=== PATIENT | female | born 1980 ===

== ENCOUNTER 2018-01-28 13:49 | Emergency (ER) | payer OTHER ==
[~2018-01-28] VITALS: Ht 162.6 cm; Wt 84.4 kg
[~2018-01-28 13:49] MED LIST: AMOXICILLIN875 M1 PO; OCUFLOX5 ML OTIC; TRIAMCINOLONE A15 G3 TOP; ZOFRAN ODT4 M1 SL
[2018-01-28 13:59] VITALS: BP 132/90
--- NOTE | 2018-01-28 14:45 | ED HEADACHE COMPLAINT ---
History of Present Illness General Chief Complaint: General Adult Stated Complaint: [facility] FOR HYPERTENSION? Source: patient Exam Limitations: no limitations Vital Signs & Intake/Output Vital Signs & Intake/Output Vital Signs Date Time Temp Pulse Resp B/P B/P Pulse O2 O2 Flow FiO2 Mean Ox Delivery Rate 01/28 1359 97.4 66 15 132/90 98 Room Air Room Air Allergies Coded Allergies: tinidazole (From TINDAMAX) (HIVES 01/28/18) Reconcile Medications Amoxicillin 875 MG TABLET 1 TAB PO BID ANTIBIOTIC (Reported) Butalb/Acetaminophen/Caffeine (Spbbil-Mwcyvjbp-Zlwg 50-325-40) 50 MG-325 MG-40 MG TABLET 1-2 TAB PO DAILY HEADACHE Ofloxacin (Ocuflox) 0.3 % DROPS 5 DROP OTIC DAILY RIGHT EAR (Reported) Ondansetron (Zofran Odt) 4 MG TAB.RAPDIS 1 TAB SL TID PRN nausea Triamcinolone Acetonide 0.1 % OINT...G. 1 LIBBY TOP PRN ECZEMA (Reported) apply to affected area(s) Triage Note: PT TO ED FROM WALK IN CLINIC FOR HPYERTENSION. PT 'S BP 132/90. PT ALSO REPORTS LEFT SIDE HEADACHE AND L EYE DISCOMFORT. DENIES CHANGE IN VISION. Triage Nurses Notes Reviewed? yes Onset: Abrupt Duration: day(s): Timing: recent history : No Patient currently breastfeeds: No HPI: 37-year-old female comes into emergency room complaints of headache headache behind left eye. Patient reports that she's been experiencing some left eye pain for a few days. She had some discharge and crusting to her left eye today. She went to the walk-in clinic. She was told to follow-up with her PCP if headaches persisted. Her headache felt worse today so she decided to come to the emergency room. She denies any vision loss. Denies any vomiting. They told her blood pressure was slightly high and it should be evaluated. Denies any dizziness. Denies any other associated symptoms. (Ortiz Gilliam) Past History Travel History Traveled to [place] past 21 day No Medical History Any Pertinent Medical History? 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 No (Ortiz Gilliam) Review of Systems Review of Systems Constitutional: Reports: no symptoms. Eyes: Reports: see HPI. Ears, Nose, Throat, Mouth: Reports: no symptoms. Respiratory: Reports: no symptoms. Cardiovascular: Reports: no symptoms. Gastrointestinal/Abdominal: Reports: no symptoms. Genitourinary: Reports: no symptoms. Musculoskeletal: Reports: no symptoms. Skin: Reports: no symptoms. Neurological/Psychological: Reports: see HPI. Hematologic/Endocrine: Reports: no symptoms. Endocrine: Reports: no symptoms. Immunologic/Allergic: Reports: no symptoms. All Other Systems: Reviewed and Negative (Ortiz Gilliam) Physical Exam Physical Exam General Appearance: well developed/nourished, no apparent distress, alert, awake Head: atraumatic, normal appearance Eyes: Bilateral: normal appearance, PERRL, EOMI. Ears, Nose, Throat: normal ENT inspection, hearing grossly normal Neck: normal inspection, supple Respiratory: normal breath sounds, no respiratory distress Cardiovascular: regular rate/rhythm Extremities: normal inspection Psychiatric: awake, alert, oriented x 3 Cranial Nerves: normal hearing, normal speech, PERRL Coordination/Gait: normal gait Motor/Sensory: no motor/sensory deficits Skin: intact, normal color Core Measures Sepsis Present: No Sepsis Focused Exam Completed? No (Ortiz Gilliam) Progress Differential Diagnosis: IC mass/tumor, migraine FLORES, Ocular migraine, conjunctivitis, Plan of Care: 01/28/2018 3:50:27 PM Patient clinically looks well. In no apparent distress. Nontoxic-appearing. Symptoms are likely ocular migraine. There are no clinical signs of infection however patient was told to resume the eyedrops are prescribed to her. She was prescribed Fioricet for headache. She was told to follow-up with her PCP. I examined her I do not feel that CT scan is necessary at this time but it was offered and she declined. shared deciesion making. She rather follow-up with her primary care doctor for further evaluation and not stay for CT scan at this time. Her neurological exam is within normal limits. (Ortiz Gilliam) Departure Departure Disposition: HOME OR SELF CARE Condition: Stable Clinical Impression Primary Impression: Ocular headache Referrals: Conrad ROTH,Ritesh Marsh (PCP/Family) Additional Instructions: Take Fioricet as prescribed. Follow-up with your primary care doctor. Continue to use eyedrops. Return if any concerns worsening symptoms. Please go over all results of today's visit with your primary care doctor. Contact your primary care doctor to let them know you were here in the emergency room. There may be nonspecific findings which may not be related to your visit today here in the emergency room but may require further evaluation and chronic monitoring by your primary care doctor. If you had a laceration today the chance of foreign body always remains. You should follow-up with your primary care doctor for recheck in 3-5 days for a wound check. If you had an x-ray done there is a chance that a fracture could have been missed on initial read and you should follow-up with your primary care doctor for repeat x-rays if symptoms persist. If your blood pressure was elevated here in the emergency room please have rechecked by [facility] primary care doctor within the next 48. If you were prescribed a narcotic here in the emergency room or any type of controlled substances you're not allowed to drive while taking this medication or operate any type of heavy machinery. Narcotics can make you feel lightheaded dizziness nausea and can cause constipation. You may need to sweet pickle maker a stool softener. Thank you for choosing [facility] emergency room. Please return to the emergency room immediately if you have any other concerns worsening of symptoms. Departure Forms: Customer Survey General Discharge Information Prescriptions: Current Visit Scripts Butalb/Acetaminophen/Caffeine (Bcvnsq-Yvtyhymq-Viue 50-325-40) 1-2 TAB PO DAILY #30 TAB (Ortiz Gilliam) PA/LENS EXAMINER Co-Sign Statement Statement: ED Attending supervision documentation- [] I saw and evaluated the patient. I have also reviewed all the pertinent lab results and diagnostic results. I agree with the findings and the plan of care as documented in the PA's/LENS EXAMINER's documentation. [x] I have reviewed the ED Record and agree with the PA's/LENS EXAMINER's documentation. [] Additions or exceptions (if any) to the PAs/LENS EXAMINER's note and plan are summarized below: [] (Terrell Brunson DO)
[2018-01-28] MEDS ORDERED: BUTALB-ACETAMI1 EACH PO (14:48)
== END 2018-01-28 14:53 ==
LOC: ERH 13:49
DX: R51 Headache (principal)